=== PATIENT | male | born 1960 | race American Indian/Alaskan Native ===

== ENCOUNTER 2022-02-16 11:26 | Emergency (ER) | payer SELFPAY ==
[2022-02-16 12:00] VITALS: BP 134/76
== END 2022-02-17 09:40 | disposition left against medical advice (07) ==
LOC: ED 11:26
DX: R07.89 Other chest pain (principal); Z53.21 Procedure and treatment not carried out due to patient leaving prior to being seen by health care provider
CPT/HCPCS: 93005